=== PATIENT | male | born 1985 | race Caucasian/White ===

== ENCOUNTER 2020-03-08 05:41 | Emergency (ER) | payer MEDICAID ==
[~2020-03-08] VITALS: Ht 167.6 cm; Wt 96.0 kg
[~2020-03-08 05:41] MED LIST: FLUO40CA8 PO
[2020-03-08 05:51] VITALS: BP 146/99
[2020-03-08 06:51] LABS: BASOPHILS % 0.6 % (0.0-2.0); EOSINOPHILS % 0.8 % (0.0-5.0); HEMOGLOBIN. 13.5 g/dL (14.0-18.0); LYMPHOCYTES % 32.4 % (20.0-50.0); MEAN CORPUSCULAR HEMOGLOBIN 30.1 pg (28.0-32.0); MEAN CORPUSCULAR VOLUME 88.7 fL (80.0-94.0); MEAN PLATELET VOLUME 8.3 fl (7.4-10.4); MONOCYTES % 7.6 % (2.0-8.0); NEUTROPHILS % 58.6 % (40.0-76.0); PLATELET 251 x1000/uL (130-400); RED BLOOD CELL COUNT 4.51 mill/uL (4.7-6.1); RED CELL DISTRIBUTION WIDTH 13.5 % (11.6-14.6)
[2020-03-08 06:53] LABS: CHLORIDE 107 mEq/L (98-107)
[2020-03-08 06:56] LABS: ETHANOL BLOOD 246 mg/dL
[2020-03-08 06:58] LABS: INR 0.9; PROTHROMBIN TIME 9.9 sec (9.6-11.0)
== END 2020-03-08 07:28 | disposition home or self-care (01) ==
LOC: ER 05:41
DX: F10.239 Alcohol dependence with withdrawal, unspecified (principal); Y90.8 Blood alcohol level of 240 mg/100 ml or more; I10 Essential (primary) hypertension; F99 Mental disorder, not otherwise specified
CPT/HCPCS: 36415; 80053; 80320; 85025; 93005; 99284; G0480

== ENCOUNTER 2020-03-09 19:47 | Emergency (ER) | payer MEDICAID ==
[~2020-03-09] VITALS: Ht 175.3 cm; Wt 107.0 kg
[2020-03-09] MEDS ORDERED: SODIUM CHLORIDE 0.9% 1,000 ML IV ONE (21:10)
[2020-03-09] MEDS ORDERED: TETANUS, DIPHTHERIA, PERTUSSIS VAC/PF 0.5ML (>7YR OLD) IM ONE (21:15)
[2020-03-09] MEDS ORDERED: CEFAZOLIN 1000MG PREMIX 50 ML IV ONE (21:15)
[2020-03-09] MEDS ORDERED: LIDOCAINE HCL 1% 20ML VIAL (Pyxis) INJ INFIL ONE (21:15)
[2020-03-09 23:05] LABS: BASOPHILS % 0.7 % (0.0-2.0); EOSINOPHILS % 0.1 % (0.0-5.0); HEMATOCRIT. 44.4 % (42.0-52.0); HEMOGLOBIN. 14.8 g/dL (14.0-18.0); LYMPHOCYTES % 20.2 % (20.0-50.0); MEAN CORPUSCULAR HEMOGLOBIN 29.8 pg (28.0-32.0); MEAN CORPUSCULAR VOLUME 89.3 fL (80.0-94.0); MEAN PLATELET VOLUME 8.5 fl (7.4-10.4); MONOCYTES % 5.2 % (2.0-8.0); NEUTROPHILS % 73.8 % (40.0-76.0); PLATELET 278 x1000/uL (130-400); RED BLOOD CELL COUNT 4.98 mill/uL (4.7-6.1); RED CELL DISTRIBUTION WIDTH 13.8 % (11.6-14.6)
[2020-03-09 23:11] LABS: CHLORIDE 108 mEq/L (98-107)
[2020-03-09 23:28] LABS: ETHANOL BLOOD 362 mg/dL
[2020-03-09 23:29] LABS: CLARITY URINE CLEAR (CLEAR); COLOR URINE YELLOW (YELLOW); KETONES URINE NEGATIVE (NEGATIVE); LEUKOCYTE ESTERASE URINE NEGATIVE (NEGATIVE); NITRITE URINE NEGATIVE (NEGATIVE); OCCULT BLOOD URINE NEGATIVE (NEGATIVE); PROTEIN URINE NEGATIVE (NEGATIVE); SPECIFIC GRAVITY URINE 1.008 (1.005-1.030); UROBILINOGEN URINE 0.2 E.U./dL (0.2-1.0)
[2020-03-09 23:41] LABS: *COCAINE SCREEN URINE NEGATIVE (NEGATIVE); METHADONE URINE SCREEN NEGATIVE (NEGATIVE); OPIATES URINE SCREEN NEGATIVE (NEGATIVE)
[2020-03-09 23:43] LABS: *AMPHETAMINES SCREEN URINE NEGATIVE (NEGATIVE); *BARBITURATES SCREEN URINE NEGATIVE (NEGATIVE); *BENZODIAZEPINES SCREEN URINE PRESUMTIVE POSITIVE (NEGATIVE); CANNABINOID URINE SCREEN NEGATIVE (NEGATIVE); PHENCYCLIDINE URINE SCREEN NEGATIVE (NEGATIVE)
[2020-03-10] MEDS ORDERED: ONDANSETRON HCL 4MG/2ML INJ IV ONE ×2 (07:00→10:30)
[2020-03-10] MEDS ORDERED: LORAZEPAM 2MG/ML CPJ IV ONE (11:45)
[2020-03-10] MEDS ORDERED: SODIUM CHLORIDE 0.9% 1,000 ML IV ONE (14:15)
[2020-03-10] MEDS ORDERED: LORAZEPAM 1MG TABLET PO PRN (23:45)
[2020-03-11 16:03] VITALS: BP 132/93
== END 2020-03-11 16:19 | disposition home or self-care (01) ==
LOC: ER 19:47
DX: S61.411A Laceration without foreign body of right hand, initial encounter (principal); F10.229 Alcohol dependence with intoxication, unspecified; Y90.8 Blood alcohol level of 240 mg/100 ml or more; F32.9 Major depressive disorder, single episode, unspecified; R45.851 Suicidal ideations; F13.10 Sedative, hypnotic or anxiolytic abuse, uncomplicated; I10 Essential (primary) hypertension; Z03.818 Encounter for observation for suspected exposure to other biological agents ruled out; Z75.1 Person awaiting admission to adequate facility elsewhere; X99.1XXA Assault by knife, initial encounter; Y93.89 Activity, other specified; Y92.488 Other paved roadways as the place of occurrence of the external cause
CPT/HCPCS: 12002; 36415; 71045; 73130; 80053; 80305; 80320; 81003; 85025; 87635; 93005; 96361; 96365; 96375; 96376; 99285; J0690; J2060; J2405; J3490; J7030; 90715; G0480

== ENCOUNTER 2020-11-13 19:45 | Emergency (ER) | payer MEDICAID ==
[~2020-11-13] VITALS: Ht 182.9 cm; Wt 91.0 kg
[2020-11-13] MEDS ORDERED: ACETAMINOPHEN 325MG TABLET PO ONE (22:30)
[2020-11-14] MEDS ORDERED: LORAZEPAM 2MG/ML CPJ IM ONE (02:30)
[2020-11-14] MEDS ORDERED: ONDANSETRON 4MG ODT PO ONE (02:30)
[2020-11-14] MEDS ORDERED: SODIUM CHLORIDE 0.9% 1,000 ML IV ONE (04:30)
[2020-11-14] MEDS ORDERED: FOLIC ACID 1 MG, THIAMINE HCL 100 MG, MVI, ADULT NO.1 10 ML in DEXTROSE 5% WATER 1,000 ML IV ONE (05:45)
[2020-11-14] MEDS ORDERED: FOLIC ACID IV ONE (06:00)
[2020-11-14] MEDS ORDERED: MULTIVITAMINS,THER W-MINERALS TABLET PO SCH (06:00)
[2020-11-14] MEDS ORDERED: WATER IV ONE (06:00)
[2020-11-14] MEDS ORDERED: FOLIC ACID 1 MG, THIAMINE HCL 100 MG in DEXTROSE 5% WATER 1,000 ML IV ONE (06:00)
[2020-11-14] MEDS ORDERED: DEXT 5% IV ONE (06:00)
[2020-11-14] MEDS ORDERED: THIAMINE HCL IV ONE (06:00)
[2020-11-14] MEDS ORDERED: CHLORDIAZEPOXIDE 25MG CAPSULE PO ONE (06:30)
[2020-11-14] MEDS ORDERED: LORAZEPAM 2MG/ML CPJ IV ONE (08:00)
[2020-11-14 08:11] LABS: BASOPHILS % 0.8 % (0.0-2.0); EOSINOPHILS % 0.1 % (0.0-5.0); HEMATOCRIT. 37.1 % (42.0-52.0); HEMOGLOBIN. 12.4 g/dL (14.0-18.0); MEAN CORPUSCULAR VOLUME 87.1 fL (80.0-94.0); MONOCYTES % 8.4 % (2.0-8.0); NEUTROPHILS % 68.7 % (40.0-76.0); PLATELET 273 x1000/uL (130-400); RED BLOOD CELL COUNT 4.26 mill/uL (4.7-6.1); RED CELL DISTRIBUTION WIDTH 14.7 % (11.6-14.6)
[2020-11-14 08:17] LABS: CHLORIDE 103 mEq/L (98-107)
[2020-11-14 11:45] VITALS: BP 135/90
[2020-11-14] MEDS ORDERED: LORA-250 MT (12:05)
== END 2020-11-14 12:22 | disposition home or self-care (01) ==
LOC: ER 19:45
DX: M25.572 Pain in left ankle and joints of left foot (principal); M79.672 Pain in left foot; F10.20 Alcohol dependence, uncomplicated; R00.0 Tachycardia, unspecified; Z79.899 Other long term (current) drug therapy; W01.0XXA Fall on same level from slipping, tripping and stumbling without subsequent striking against object, initial encounter; Y93.89 Activity, other specified; Y92.89 Other specified places as the place of occurrence of the external cause; Y99.8 Other external cause status; Y90.9 Presence of alcohol in blood, level not specified
CPT/HCPCS: 36415; 73610; 73630; 80053; 85025; 96365; 96372; 96375; 99285; J2060; J3411; J3490; J7030; J7070; Q0162; Z7610; J7060

== ENCOUNTER 2022-11-25 12:04 | Emergency (ER) | payer BC, MEDICAID, OTHER ==
[~2022-11-25] VITALS: Ht 170.2 cm; Wt 102.0 kg
[~2022-11-25 12:04] MED LIST changes: +LORA-250 MT
[2022-11-25] MEDS ORDERED: LORAZEPAM 2MG/ML CPJ IV STA (12:17)
[2022-11-25] MEDS ORDERED: LORAZEPAM 2MG/ML CPJ IM ONE (12:30)
[2022-11-25] MEDS ORDERED: HALOPERIDOL LACTATE 5MG/ML VIAL IM ONE (12:45)
[2022-11-25 14:21] LABS: BASOPHILS % 0.4 % (0.0-2.0); EOSINOPHILS % 0.2 % (0.0-5.0); HEMATOCRIT. 41.8 % (42.0-52.0); HEMOGLOBIN. 14.1 g/dL (14.0-18.0); LYMPHOCYTES % 11.4 % (20.0-50.0); MEAN CORPUSCULAR HEMOGLOBIN 30.1 pg (28.0-32.0); MEAN CORPUSCULAR VOLUME 89.1 fL (80.0-94.0); MEAN PLATELET VOLUME 9.1 fl (7.4-10.4); MONOCYTES % 6.8 % (2.0-8.0); NEUTROPHILS % 81.2 % (40.0-76.0); PLATELET 306 x1000/uL (130-400); RED BLOOD CELL COUNT 4.69 mill/uL (4.7-6.1); RED CELL DISTRIBUTION WIDTH 14.7 % (11.6-14.6)
[2022-11-25 16:04] LABS: CHLORIDE 107 mEq/L (98-107)
[2022-11-25 16:21] LABS: ETHANOL BLOOD < 10 mg/dL
[2022-11-25 23:28] VITALS: BP 144/84
== END 2022-11-25 23:34 | disposition home or self-care (01) ==
LOC: ER 12:04
DX: R45.1 Restlessness and agitation (principal); F10.229 Alcohol dependence with intoxication, unspecified; Y90.0 Blood alcohol level of less than 20 mg/100 ml
CPT/HCPCS: 36415; 80053; 80307; 80320; 80329; 82140; 83690; 84443; 85025; 96372; 96374; 99291; J1630; J2060; Z7610; G0480